=== PATIENT | female | born 1940 | race Caucasian/White ===

== ENCOUNTER 2025-02-09 12:21 | Emergency (ER) | payer MEDICARE ==
[~2025-02-09] VITALS: Ht 162.6 cm; Wt 66.2 kg
[2025-02-09] MEDS ORDERED: GNP1000T11 PO (12:37)
[2025-02-09] MEDS ORDERED: BIOT10002 PO (12:37)
[2025-02-09] MEDS ORDERED: OCUV1CHW PO (12:37)
[2025-02-09] MEDS ORDERED: OMEG10002 PO (12:37)
[2025-02-09] MEDS ORDERED: LEVO50TA5 PO (12:37)
[2025-02-09] MEDS ORDERED: LEVO88TA3 PO (13:49)
[2025-02-09] MEDS ORDERED: HOME MED LIST COMPLETE! XX SCH (13:50)
[2025-02-09] MEDS: BOOSTRIX VACCINE (TETANUS/DIPHTH/ACEL. PERTUSSIS) 0.5 ML SYR IM.IMMUN ONE (14:34)
[2025-02-09 16:30] VITALS: BP 170/78; TEMP 97.9; O2SAT 98
== END 2025-02-09 16:55 | disposition home or self-care (01) ==
LOC: M ED 12:21
DX: S01.01XA Laceration without foreign body of scalp, initial encounter (principal); S52.532A Colles' fracture of left radius, initial encounter for closed fracture; W01.198A Fall on same level from slipping, tripping and stumbling with subsequent striking against other object, initial encounter; M47.812 Spondylosis without myelopathy or radiculopathy, cervical region; M85.89 Other specified disorders of bone density and structure, multiple sites; E03.9 Hypothyroidism, unspecified; Z79.899 Other long term (current) drug therapy; Z88.0 Allergy status to penicillin; Z91.013 Allergy to seafood; Z91.018 Allergy to other foods; Y92.009 Unspecified place in unspecified non-institutional (private) residence as the place of occurrence of the external cause; Y93.89 Activity, other specified; Y99.9 Unspecified external cause status; Z23 Encounter for immunization